=== PATIENT | male | born 2005 | race Caucasian/White ===

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

== ENCOUNTER → 2024-06-19 15:08 | Outpatient (CLI) | payer BC, SELFPAY ==
--- NOTE | 2024-06-19 15:17 | DI.RAD.S_ITS ---
PROCEDURE: XR LUMBAR SPINE 2-3V INDICATIONS: SPINAL PAIN TECHNIQUE: 3 views of the lumbar spine were acquired. COMPARISON: None. FINDINGS: Bones: 5 [id number] vertebrae are present. There is normal bony alignment. No vertebral body compression fractures. No suspicious bony lesions. Soft tissues: Overlying bowel gas pattern is normal. No suspicious soft tissue calcifications. IMPRESSION: No acute bony abnormality. Dictated by: Rico Marie M.D. on 06/21/2024 at 10:23 Approved by: Rico Marie M.D. on 06/21/2024 at 10:23
--- NOTE | 2024-06-19 15:17 | DI.RAD.S_ITS ---
PROCEDURE: XR THORACIC SPINE 3V INDICATIONS: SPINAL PAIN TECHNIQUE: 3 views of the thoracic spine were acquired. COMPARISON: None. FINDINGS: Bones: No fractures or dislocations. No suspicious bony lesions. 12 pairs of ribs are noted, and appear intact where visualized. Soft tissues: No paravertebral stripe thickening. IMPRESSION: No acute bony abnormality. Dictated by: Rico Marie M.D. on 06/21/2024 at 10:24 Approved by: Rico Marie M.D. on 06/21/2024 at 10:24
--- NOTE | 2024-06-19 15:17 | DI.RAD.S_ITS ---
PROCEDURE: XR CERVICAL SPINE 2V OR 3V INDICATIONS: SPINAL PAIN TECHNIQUE: 3 view(s) of the cervical spine were acquired. COMPARISON: None. FINDINGS: Bones: No fractures or dislocations to the T1 level. There is mild loss of normal cervical curvature. The lateral masses of C1 appear intact on the odontoid view. No suspicious bony lesions. Soft tissues: No prevertebral soft tissue swelling. IMPRESSION: No displaced fracture or traumatic subluxation. Dictated by: Rico Marie M.D. on 06/21/2024 at 10:22 Approved by: Rico Marie M.D. on 06/21/2024 at 10:22
== END ==
PROVIDERS: PCP Family Medicine; Referring Provider Chiropractor; Visit Provider Chiropractor
DX: M99.01 Segmental and somatic dysfunction of cervical region (principal); M99.02 Segmental and somatic dysfunction of thoracic region; M99.03 Segmental and somatic dysfunction of lumbar region
CPT/HCPCS: 72040; 72072; 72100